=== PATIENT | female | born 1955 | race Caucasian/White ===

== ENCOUNTER → 2017-11-26 10:10 | Outpatient (CLI) | payer OTHER, SELFPAY | PROVIDERS: Family Provider Internal Medicine; PCP Internal Medicine; Visit Provider Internal Medicine | DX: M81.0 Age-related osteoporosis without current pathological fracture (principal); Z12.31 Encounter for screening mammogram for malignant neoplasm of breast | CPT/HCPCS: 77063; 77067; 77080 ==

== ENCOUNTER → 2018-01-30 12:21 | Outpatient (CLI) | payer SELFPAY ==
--- NOTE | 2018-01-30 12:28 | CT_ITS ---
STUDY: CT CHEST WITHOUT CONTRAST REASON FOR EXAM: Female, 62 years old. Elevated cholesterol. This is an over read examination for the lungs and mediastinum.. RADIATION DOSAGE (If Supplied By Facility): CTDIvol = ( 12.19 ) mGy, DLP = ( 195.04 ) mGycm TECHNIQUE: Transaxial imaging was performed without the administration of intravenous contrast material. Individualized dose optimization techniques were used for this CT. COMPARISON: None. FINDINGS: The lungs are normal. There is no demonstrated pleural abnormality. There are calcifications of the coronary arteries. There are multiple small lymph nodes within the mediastinum, which are normal in size and morphology most compatible with reactive lymph hyperplasia. Normal hilar regions. Normal unenhanced pulmonary arteries. Normal aorta arch and descending thoracic aorta. There are degenerative changes of the thoracic spine. There is no demonstrated abnormality of the visualized upper abdomen. CT/Limited Chest CT w/CCTA IMPRESSION: Coronary artery calcification. No acute abnormalities seen. Electronically Signed: Yuri Westfall MD at 8:30 EST Tel [phone], Service support ,
[2018-01-30 12:48] VITALS: BP 125/72; PULSE 57; RESP 14; TEMP 37.3; O2SAT 98; BMI 20.5
--- NOTE | 2018-01-31 08:40 | CA.SCORE ---
Calcium Scoring Date of Study:: 01/30/18 Coronary Calcium Scoring: Coronary calcium scoring. High-resolution computed tomographic images of the chest were performed on 01/30/2018 with particular attention paid to the coronary arteries. Images from the examination were analyzed for the presence and extent of coronary artery calcification using the coronary calcifications software. Patient tolerated the procedure well there were no complications. Findings, Left main coronary artery had mild calcification with a score of 20. Left anterior descending artery score of 0 Left circumflex artery score 0 Right coronary artery score of 0 Total calcium score 20. The above is suggestive of minimal atherosclerotic calcification. Conclusion: Minimal coronary artery calcification noted.
== END ==
PROVIDERS: Family Provider Internal Medicine; PCP Internal Medicine; Referring Provider Internal Medicine; Visit Provider Internal Medicine
DX: I25.10 Atherosclerotic heart disease of native coronary artery without angina pectoris (principal); E78.00 Pure hypercholesterolemia, unspecified; R79.89 Other specified abnormal findings of blood chemistry
CPT/HCPCS: 75571; 76380

== ENCOUNTER → 2018-11-27 07:37 | Outpatient (CLI) | payer OTHER, SELFPAY ==
--- NOTE | 2018-11-27 07:39 | BI_ITS ---
MAMMOGRAPHY - BILATERAL SCREENING REASON FOR EXAM: Female, 63 years old. Routine annual screening examination. PERTINENT HISTORY: Non-contributory. TECHNIQUE: Digital bilateral breast chika (3D mammographic acquisition) in the CC and MLO projections. 2-D mediolateral oblique (MLO) and craniocaudad (CC) views of both breasts were obtained. CAD: Full Field Digital Mammography with Computer Added Detection was performed. COMPARISON: Comparison is made with prior study dated November 26, 2017 and November 21, 2016. FINDINGS: Breast Composition: The breasts are heterogeneously dense, which may obscure small masses. There are no dominant masses or suspicious calcifications. No other significant abnormalities are identified. There has been no significant change since the prior study. BI/SCREEN MAMM (CAD) W/CHIKA BILAT IMPRESSION: Stable bilateral screening mammogram. Yearly follow-up mammogram recommended. (A) ASSESSMENT CATEGORY: BIRADS Category 1: Negative. A letter regarding these results will be sent to the patient by the facility within 30 days. Approximately 10% of breast cancers are not detected by mammography. A normal mammogram should not delay biopsy of a clinically suspicious abnormality. [id number] Electronically Signed: Yuri Westfall, at 8:29 EDT , Service support ,
== END ==
PROVIDERS: Family Provider Internal Medicine; PCP Internal Medicine; Referring Provider Internal Medicine; Visit Provider Internal Medicine
DX: Z12.31 Encounter for screening mammogram for malignant neoplasm of breast (principal)
CPT/HCPCS: 77063; 77067

== ENCOUNTER → 2019-08-26 09:07 | Outpatient (CLI) | payer OTHER, SELFPAY ==
[2018-01-30 12:48] VITALS: BMI 20.5
--- NOTE | 2019-08-25 | FLU_PTH ---
PATIENT: STEPHY HERNANDEZ LOC: [facility] U#:[id number] AGE/SX: 69/F ROOM: RE08/26/[address]: Dr. Bharti Lew DPM : 1955 BED: DIS: SPEC #: [id number] RECD: 08/25/19 17:26 STATUS: PELON AXEL #: [id number] ALEXIS: 08/25/19 00:[address]: Bharti Lew DEPT: CYTOLOGY RECD BY: Elier Remy ENTERED: 08/26/19 09:37 SP TYPE: Fluid OTHR DR: Dr. Viktoriya Roque MD Tissues: GANGLION CYST Procedures: Special Stain Group II Surgery Specimen Level IV Cytospin Fluid HEADER OPERATION: Ganglion aspiration PRE-OP DIAGNOSIS: Ganglion cyst TISSUE SUBMITTED: Ganglion aspirate for cytology DIAGNOSIS CYTOLOGY Fine needle aspiration, ganglion cyst (cytospin and cell block): Negative for malignant cells. AM:yelena 08/27/19 CYTOLOGY STUDY Slides are reviewed. CYTOLOGY GROSS Received is 1.5 ml of red cloudy fluid labeled with the patient's name and and designated per the requisition as ganglion. Submitted for cytology preparation including cell block. / yelena 08/26/19 TC:5 CPT: 63930, 88390
== END ==
PROVIDERS: PCP Internal Medicine; Visit Provider Podiatrist
DX: M71.379 Other bursal cyst, unspecified ankle and foot (principal)
CPT/HCPCS: 88108; 88305; 88313

== ENCOUNTER → 2019-08-31 08:29 | Outpatient (CLI) | payer OTHER, SELFPAY ==
--- NOTE | 2019-08-31 08:34 | RAD_ITS ---
STUDY: X-RAY - RIGHT ANKLE REASON FOR EXAM: Female, 64 years old. PAIN TECHNIQUE: 3 view(s) of the ankle. COMPARISON: None. FINDINGS: Normal visualized distal tibia and fibula. Normal medial and lateral malleoli. Normal tibiotalar articulation and ankle mortise. Normal visualized talus and calcaneus. The visualized subtalar, talonavicular, calcaneocuboid and tarsal articulations are normal. The soft tissue structures are unremarkable. RAD/Ankle min 3 Views IMPRESSION: Normal x-ray examination of the ankle. Electronically Signed: Yuri Westfall, at 13:43 EDT , Service support ,
== END ==
PROVIDERS: PCP Internal Medicine
DX: D49.2 Neoplasm of unspecified behavior of bone, soft tissue, and skin (principal)
CPT/HCPCS: 73610

== ENCOUNTER → 2019-09-08 06:13 | Outpatient (CLI) | payer OTHER, SELFPAY ==
--- NOTE | 2019-09-08 06:37 | MRI_ITS ---
STUDY: MRI RIGHT ANKLE WITH AND WITHOUT CONTRAST REASON FOR EXAM: Anterior lateral ankle lump. TECHNIQUE: Standarized fat and water weighted pulse sequences were obtained in all 3 orthogonal plane pre and post intravenous administration of IV 10ml Dotarem. COMPARISON: Radiographs 08/31/2019. FINDINGS: There is a cystic lesion at the lateral aspect of the talar head/neck corresponding to the skin marker (T2 axial images 16-18; inversion recovery sagittal images 6, 7) measuring 2.1 x 0.5 cm (AP x transverse). There is a mildly thickened wall of the cystic lesion with contrast enhancement (postcontrast T1 axial images 16-19). Normal posterior tibialis tendon. Normal flexor digitorum longus tendon. Normal flexor hallucis longus tendon. Normal peroneus longus and brevis tendons. Normal tibialis anterior tendon. Normal extensor hallucis longus tendon. Normal extensor digitorum longus tendons. Normal Achilles tendon and teno-osseous insertion. Normal plantar fascia. Normal plantar calcaneal tubercles. Normal intrinsic muscles of the rearfoot. Normal distal tibiofibular syndesmotic ligamentous complex. Normal lateral ligamentous complex. Normal subtalar ligaments and sinus tarsi. Normal deltoid ligamentous complexes. Normal plantar calcaneonavicular (spring) ligament. Normal tibiotalar articulation. Normal talar dome. Normal subtalar articulations. Normal talonavicular articulation. Normal calcaneocuboid articulation. Normal navicular-cuneiform articulations. MRI/Lower Ext Joint Only W/WO Cont IMPRESSION: Cystic lesion at the lateral aspect of the distal talus with mildly thickened contrast enhancing wall, a leading differential consideration is a complicated ganglion cyst. Electronically Signed: Daniel Benjamin MD at 8:35 EDT Tel , Service support ,
[2019-09-08 08:01] LABS: CREATININE FINGERSTICK 0.8 mg/dL (0.55-1.02); EGFR FINGERSTICK > 60.0000 mL/min (>60)
== END ==
PROVIDERS: PCP Internal Medicine; Referring Provider Podiatrist; Visit Provider Podiatrist
DX: D49.2 Neoplasm of unspecified behavior of bone, soft tissue, and skin (principal)
CPT/HCPCS: 73723; A9585

== ENCOUNTER 2019-12-03 05:52 | Day surgery (SDC) | payer OTHER, SELFPAY ==
[2019-12-03 06:24] VITALS: BP 168/82; PULSE 67; RESP 16; TEMP 37.3; O2SAT 67; BMI 21.6
--- NOTE | 2019-12-03 06:32 | PCM.HP.STD ---
Problem List (1) Ganglion cyst of right foot Status: Acute History of Present Illness Date of Admission: 12/03/19 Chief Complaint: Pt complains of chronic pain and sudden onset of cyst to right ankle/rearfoot The patient is a 64 year old F [] Past Medical History Allergies Penicillins Allergy (Verified 11/24/19 13:29) Rash Home Medications: Ambulatory Orders Medication Instructions Recorded Berberine 500 mg PO DAILY 11/24/19 RX: Turmeric 900 mg PO DAILY 11/24/19 Rosuvastatin Calcium [Crestor] 5 mg PO QHS 11/24/19 Smoking Status: Never smoker Tobacco Use: Non-smoker VTE Information - Inpt Only VTE Present on Admission: No Reason prophylaxis not ordered:: Treatment Not Indicated Patient Problems: Active and Suspected Problems Ganglion cyst of right foot (Acute) Subjective: Pt complains of painful large lump to right ankle. MRI confirmed complicated cyst near talar head. She wishes to have it surgically removed after it returned following aspiration. Objective: Smaller, firmer cyst to right rearfoot, lateral to talar head. Pain is present with ROM and palpation of the lesion. - Physical Exam General: Alert, Cooperative, No apparent distress Extremities: Peripheral Pulses Normal Skin: No rashes, No breakdown Musculoskeletal: - - Palpable freely movable cyst to right rearfoot, lateral to the talar head. Neurological: - - No sensory deficit to right rearfoot/ankle area. Current Medications Clindamycin Phosphate 900 mg/ (Dextrose) 106 mls @ 150 mls/hr IV PREOP ONE Stop: 12/03/19 07:42 Assessment/Plan All Active Problems Ganglion cyst of right foot (Acute) 1. Ganglion cyst right rearfoot 2. pain right foot Plan: Aspiration failed to relieve symptoms and MRI confirmed complicated ganglion. Pt wishes to proceed with surgical excision. Risks, complications, alternative treatments were reviewed in detail. No guarantees given. Consent was signed and pt to present to [facility] on 12/03/2019 for outpatient surgical intervention for excision of lesion.
[2019-12-03] MEDS: Lactated Ringers 1,000 ML 100 ML IV (06:45)
--- NOTE | 2019-12-03 07:30 | GANG_PTH ---
PATIENT: STEPHY HERNANDEZ LOC: [facility] [place] U#:[id number] AGE/SX: 64/F ROOM: RE12/03/[address]: Dr. Bharti Lew DPM : 1955 BED: DIS: 12/03/2019 SPEC #: [id number] RECD: 12/03/19 08:28 STATUS: PELON AXEL #: [id number] ALEXIS: 12/03/19 07:[address]: Bharti Lew DEPT: SURGICAL PATHOLOGY RECD BY: Fly Dempsey ENTERED: 12/03/19 12:43 SP TYPE: GANGLION OTHR DR: Dr. Viktoriya Roque MD Tissues: GANGLION CYST Procedures: Surgery Specimen Level III HEADER OPERATION: Excision ganglion cyst of right foot/ankle PRE-OP DIAGNOSIS: Ganglion cyst of right foot/ankle TISSUE SUBMITTED: Ganglion cyst of right foot/ankle MICROSCOPIC DIAGNOSIS Ganglion cyst of right foot/ankle: A piece of fibroconnective and fibroadipose tissue with reactive changes and focal suggestive of ganglion cyst.. See comment. MERCEDEZ:yelena 12/06/19 COMMENT Please make reference to previous specimen ([id number]) fine needle aspiration, ganglion cyst with diagnosis of negative for malignant cells. Case has been reviewed in consultation with Dr. Shafer who concurs with the above diagnosis. IDC:AM MICROSCOPIC DESCRIPTION Slides are reviewed. GROSS DESCRIPTION Received in fixative is one container labeled with the patient's name and designated ganglion cyst of right foot/ankle. The specimen consists of a piece of peng-pink soft tissue measuring in aggregate 1.5 x 1 x 0.3 cm. The entire specimen is submitted in one cassette. / MERCEDEZ:yelena 12/03/19 TC:5 CPT: 21865
--- NOTE | 2019-12-03 08:04 | PCM.OPRPT ---
Problem List (1) Ganglion cyst of right foot Status: Acute Report of Operation Date of Procedure: 12/03/19 Pre-Operative Diagnosis: ganglion cyst right foot/ankle Post-Operative Diagnosis: same Surgery/Procedure Performed:: excision ganglinn cyst, right foot/ankle Description of Surgical Findings:: empty ganglion cyst lateral to talus Type of Anesthesia:: MAC/Supplemental/Local - 7cc's 1\5 lidocaine with epinephrine Anesthesiologist: Eneida Specimen's removed: soft tissue Drains: none Estimated Blood Loss (mL): minimal Fluids Replaced: none Description of Procedure: Pt was brought to OR and placed on operating table in supine position. Following IV sedation, local anesthesia was obtained proximal to the lesion location utilizing a total of 7 cc's of 1% lidocaine with epi. The foot and ankle were scrubbed, prepped, and draped in the usual aseptic manner. The right foot was elevated to exsanguinate the limb and the pneumatic ankle tourniquet was inflated to 250mmHg. Attention was then directed to the anterior ankle/rearfoot, lateral to the talar head. A 5cm linear longitudinal incision was made superficial to the cyst. The incision was deepened through sharp and then blunt dissection down to the level of the lateral talar head. The deep peroneal nerve was located and retracted gently. It was directly superficial to the cyst. The empty cyst was located lateral to the talar head, dissected free from attachments, and excised. It was approximately 1.5cm. All superficial bleeding vessels were cauterized as necessary. The wound was then flushed with copious amounts of NSS. Deep tissues were reapproximated and coapted utilizing 3-0 vicryl sutures, making sure the nerve was not bound. The skin was then reapproximated and coapted utilizing 3-0 monocryl sutures. The wound was reinforced with steri strips and a sterile compressive dressing consisting of 4x4's, kerlix, and a 4 inch trent was applied. Tourniquet was removed and a prompt hyperemic response was noted to all digits of the right foot. Pt was transferred to PACU with VSS and vascular status intact to right foot. Following a period of post operative monitoring, the pt will be discharged home with written post operative instructions. She is to keep the dressing clean, dry, and intact. Rest, ice, elevate, and wear surgical shoe at all times while ambulating. WB as tolerated, using crutches prn. Take pain medication as directed. Follow in Dr. Lew's office for all post operative care and if any problems arise. Grafts/Implants Used: none - Complications none - Admit VTE Documentation VTE Present on Admission: No VTE Mechan Device Prophylaxis: None VTE Pharm Prophylaxis ordered?: No Reason prophylaxis not ordered:: Treatment Not Indicated
[2019-12-03 08:17] VITALS: BP 112/75; BP 123/84; BP 168/82; PULSE 72; PULSE 75; RESP 16; TEMP 36.6; O2SAT 98; O2SAT 99
[2019-12-03 08:24] VITALS: BP 129/73; BP 168/82; PULSE 68; RESP 18; O2SAT 100
[2019-12-03 08:30] VITALS: BP 120/77; BP 168/82; PULSE 65; RESP 16; TEMP 36.7; O2SAT 100
[2019-12-03 08:55] VITALS: BP 128/73; BP 168/82; PULSE 72; RESP 16; TEMP 36.7; O2SAT 100
== END 2019-12-03 09:22 | disposition home or self-care (01) ==
LOC: SDC 05:52 → AC 05:58
PROVIDERS: Anesthesiology; PCP Internal Medicine; Referring Provider Podiatrist; Visit Provider Podiatrist
PROC: (CPT 28090; principal; 2019-12-03 07:15)
DX: M67.471 Ganglion, right ankle and foot (principal); Z11.59 Encounter for screening for other viral diseases; E78.00 Pure hypercholesterolemia, unspecified; Z79.899 Other long term (current) drug therapy
CPT/HCPCS: 01470; 28090; 87635; 88304; C9803; J7120; J2405; U0003

== ENCOUNTER → 2020-01-13 09:04 | Outpatient (CLI) | payer OTHER, SELFPAY ==
--- NOTE | 2020-01-13 09:07 | BI_ITS ---
MAMMOGRAPHY - BILATERAL SCREENING REASON FOR EXAM: Female, 64 years old. Routine annual screening examination. PERTINENT HISTORY: Non-contributory. TECHNIQUE: Digital bilateral breast chika (3D mammographic acquisition) in the CC and MLO projections. 2-D mediolateral oblique (MLO) and craniocaudad (CC) views of both breasts were obtained. CAD: Full Field Digital Mammography with Computer Added Detection was performed. COMPARISON: Comparison is made with prior study dated 11/27/2018 and 11/26/2017. FINDINGS: Breast Composition: The breasts are heterogeneously dense, which may obscure small masses. There are no dominant masses or suspicious calcifications. No other significant abnormalities are identified. There has been no significant change since the prior study. BI/SCREEN MAMM (CAD) W/CHIKA BILAT IMPRESSION: Stable bilateral screening mammogram. Yearly follow-up mammogram recommended. (A) ASSESSMENT CATEGORY: BIRADS Category 1: Negative. A letter regarding these results will be sent to the patient by the facility within 30 days. Approximately 10% of breast cancers are not detected by mammography. A normal mammogram should not delay biopsy of a clinically suspicious abnormality. [id number] Electronically Signed: Yuri Westfall, at 10:28 EDT , Service support ,
--- NOTE | 2020-01-13 09:15 | BD_ITS ---
STUDY: DUAL ENERGY X-RAY ABSORPTIOMETRY / DXA REASON FOR EXAM: Female, 64 years old. 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 COMPARISON: Comparison is made with a prior study dated 12/21/2017. FINDINGS: Lumbar Spine (L1-L4): g/cm2 (1.006) / T-score (-1.4) / Z-score (0.1) Findings are suggestive of osteopenia with a low fracture risk. Left Femur Total: g/cm2 (0.770) / T-score (-1.9) / Z-score (-0.7) Left Femoral Neck: g/cm2 (0.757) / T-score (-2.0) / Z-score (-0.6) Right Femur Total: g/cm2 (0.757) / T-score (-2.0) / Z-score (-0.8) Right Femoral Neck: g/cm2 (0.770) / T-score (-1.9) / Z-score (-0.5) The T-Scores on the most recent prior examination were: Lumbar Spine (L1-L4): There has been improvement of bone density since the previous examination. Left Femur Total: which represents a worsening of 1.7%. Right Femur Total: which represents a worsening of 0.9%. BD/Dexa Bone Density Study IMPRESSION: The patient is considered osteopenic as outlined below according to World Tyler Organization (WHO) criteria with a moderate fracture risk. There has been worsening of bone density since the previous examination. Reference Information: The T-score is the number of standard deviations above or below the standard which is normal for young adults at their peak bone mineral density. The World Health Organization (WHO) interprets the T-scores as follows: Above -1 Normal bone density Between -1 and -2.5 Osteopenia Equal to / or below -2.5 Osteoporosis As a practical clinical guideline, osteopenia may be graded as follows: Mild -1 through -1.5 Moderate -1.6 through -2.0 Severe -2.1 through -2.4 The Z-score is the number of standard deviations above or below age-matched controls. A Z-score of less than -1.5 would be considered abnormal. References: 1. NIH Osteoporosis and Related Bone Diseases www osteo.org 2. International Society for Clinical Densitometry www iscd.org 3. National Osteoporosis Foundation www nof.org Electronically Signed: Yuri Westfall, at 12:16 EDT , Service support ,
== END ==
PROVIDERS: PCP Internal Medicine; Referring Provider Internal Medicine; Visit Provider Internal Medicine
DX: Z12.31 Encounter for screening mammogram for malignant neoplasm of breast (principal); M81.0 Age-related osteoporosis without current pathological fracture
CPT/HCPCS: 77063; 77067; 77080

== ENCOUNTER → 2021-03-13 08:25 | Outpatient (CLI) | payer MEDICARE, SELFPAY ==
--- NOTE | 2021-03-13 08:30 | BI_ITS ---
MAMMOGRAPHY - BILATERAL SCREENING REASON FOR EXAM: Female, 65 years old. Routine annual screening examination. PERTINENT HISTORY: Non-contributory. TECHNIQUE: Digital bilateral breast chika (3D mammographic acquisition) in the CC and MLO projections. 2-D mediolateral oblique (MLO) and craniocaudad (CC) views of both breasts were obtained. CAD: Full Field Digital Mammography with Computer Added Detection was performed. COMPARISON: Comparison is made with prior study dated 01/13/2020 and 11/27/2018. FINDINGS: Breast Composition: The breasts are heterogeneously dense, which may obscure small masses. There are no dominant masses or suspicious calcifications. No other significant abnormalities are identified. There has been no significant change since the prior study. BI/SCRN MAMM (CAD)W/CHIKA BILAT IMPRESSION: Stable bilateral screening mammogram. Yearly follow-up mammogram recommended. (A) ASSESSMENT CATEGORY: BIRADS Category 1: Negative. A letter regarding these results will be sent to the patient by the facility within 30 days. Approximately 10% of breast cancers are not detected by mammography. A normal mammogram should not delay biopsy of a clinically suspicious abnormality. [id number] Electronically Signed: Yuri Westfall MD at 10:54 EST , Service support ,
== END ==
PROVIDERS: PCP Internal Medicine; Referring Provider Internal Medicine; Visit Provider Internal Medicine
DX: Z12.31 Encounter for screening mammogram for malignant neoplasm of breast (principal)
CPT/HCPCS: 77063; 77067

== ENCOUNTER → 2022-03-14 | Outpatient (CLI) | payer MEDICARE, SELFPAY ==
--- NOTE | 2022-03-14 09:01 | BI_ITS ---
MAMMOGRAPHY - BILATERAL SCREENING REASON FOR EXAM: Female, 66 years old. Routine annual screening examination. PERTINENT HISTORY: Non-contributory. TECHNIQUE: Digital bilateral breast chika (3D mammographic acquisition) in the CC and MLO projections. 2-D mediolateral oblique (MLO) and craniocaudad (CC) views of both breasts were obtained. CAD: Full Field Digital Mammography with Computer Added Detection was performed. COMPARISON: Comparison is made with prior examination dated 03/13/2021 and 01/13/2020. FINDINGS: Breast Composition: The breasts are heterogeneously dense, which may obscure small masses. There are no dominant masses or suspicious calcifications. No other significant abnormalities are identified. There has been no significant change since the prior study. BI/SCRN MAMM (CAD)W/CHIKA BILAT IMPRESSION: Stable bilateral screening mammogram. Yearly follow-up mammogram recommended. (A) ASSESSMENT CATEGORY: BIRADS Category 1: Negative. A letter regarding these results will be sent to the patient by the facility within 30 days. Approximately 10% of breast cancers are not detected by mammography. A normal mammogram should not delay biopsy of a clinically suspicious abnormality. [id number] Electronically Signed: Yuri Westfall MD at 10:50 EST ,
--- NOTE | 2022-03-14 09:10 | BD_ITS ---
STUDY: DUAL ENERGY X-RAY ABSORPTIOMETRY / DXA REASON FOR EXAM: Female, 66 years old. 627.8Menopausal postmenopausalBONE DENSITY REASON FOR EXAM TECHNIQUE: Bone Mineral Density (BMD) measurements of lumbar spine and bilateral hips were obtained. COMPARISON: -0.6 is made with prior study dated 01/13/2020. FINDINGS: Lumbar Spine (L1-L4): g/cm2 (0.869) / T-score (-1.6) / Z-score (0.3) Findings are suggestive of osteopenia with a moderate fracture risk. Left Femur Total: g/cm2 (0.708) / T-score (-1.9) / Z-score (-0.6) Left Femoral Neck: g/cm2 (0.599) / T-score (-2.3) / Z-score (-0.6) Right Femur Total: g/cm2 (0.682) / T-score (-2.1) / Z-score (-0.8) Right Femoral Neck: g/cm2 (0.624) / T-score (-2.0) / Z-score (-0.4) The T-Scores on the most recent prior examination were: Lumbar Spine (L1-L4): There has been worsening of bone density since the previous examination. Left Femur Total: which represents a worsening of 0.3%. Right Femur Total: which represents a worsening of 2.2%. BD/Dexa Bone Density Study IMPRESSION: The patient is considered osteopenic as outlined below according to World Tyler Organization (WHO) criteria with a high fracture risk. There has been worsening of bone density since the previous examination. Reference Information: The T-score is the number of standard deviations above or below the standard which is normal for young adults at their peak bone mineral density. The World Health Organization (WHO) interprets the T-scores as follows: Above -1 Normal bone density Between -1 and -2.5 Osteopenia Equal to / or below -2.5 Osteoporosis As a practical clinical guideline, osteopenia may be graded as follows: Mild -1 through -1.5 Moderate -1.6 through -2.0 Severe -2.1 through -2.4 The Z-score is the number of standard deviations above or below age-matched controls. A Z-score of less than -1.5 would be considered abnormal. References: 1. NIH Osteoporosis and Related Bone Diseases www osteo.org 2. International Society for Clinical Densitometry www iscd.org 3. National Osteoporosis Foundation www nof.org Electronically Signed: Yuri Westfall MD at 9:19 EST ,
--- NOTE | 2022-03-14 09:46 | US_ITS ---
STUDY: ULTRASOUND OF THE FEMALE PELVIS - COMPLETE REASON FOR EXAM: Female, 66 years old. PMB Post-Menopausal Bleeding - Pelvic, Tvag LMP: Patient is postmenopausal. TECHNIQUE: Transabdominal and Transvaginal TECHNICAL QUALITY: Adequate. COMPARISON: None. FINDINGS: The uterus is anteverted and is in a midline position. The uterus measures 6.7 cm x 5.2 cm x 3.9 cm. Normal uterine cervix. The endometrium is thickened and measures 14 mm in thickness, and is heterogeneous (striated). There is no demonstrated endometrial mass. There is no demonstrated myometrial mass. I.U.D. - The patient does not have an I.U.D. The right ovary is non-visualized. The left ovary is visualized. The left ovary measures 1.3 cm x 1.6 cm x 0.6 cm. There is no left ovarian cyst or ovarian mass. There is no visualized left adnexal mass or complex lesion. There is normal arterial and normal venous vascularity. There is no fluid in the cul-de-sac. The pre void volume of the bladder was 82 ml. US/Pelvic (Non ) IMPRESSION: Thickening of the endometrium measuring 14 mm. Electronically Signed: Yuri Westfall MD at 14:24 EST ,
== END | disposition home or self-care (01) ==
PROVIDERS: PCP Internal Medicine; Referring Provider Internal Medicine; Visit Provider Internal Medicine
DX: Z78.0 Asymptomatic menopausal state (principal); Z12.31 Encounter for screening mammogram for malignant neoplasm of breast; N95.0 Postmenopausal bleeding
CPT/HCPCS: 76830; 76856; 77063; 77067; 77080

== ENCOUNTER → 2025-03-09 | Outpatient (CLI) | payer MEDICARE, SELFPAY ==
--- NOTE | 2025-03-09 13:43 | NEURO ---
NCS and/or EMG Patient Report Ordering Doctor: Bharti Lew DATE OF SERVICE: 03/09/25 No presents with complaints of numbness in both feet. Electrodiagnostic findings: Left peroneal motor nerve demonstrates normal distal latency, amplitude and conduction velocity. Right peroneal motor nerve demonstrates normal distal latency and amplitude with a drop in conduction velocity of greater than 10 ms. Tibial motor response within normal limits bilaterally. Sensory responses are normal. Normal tibial and peroneal F?waves. Normal H?reflux bilaterally. Needle EMG testing was performed in the lower limbs. All muscles tested showed no evidence of denervation with normal motor unit action potentials. Electrodiagnostic impression: This is an abnormal study. 1. 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 There is no evidence of axonal loss. Is unclear whether this is attributing to the patient's symptoms. 2. No electrodiagnostic evidence is noted for peripheral polyneuropathy. 3. No electrodiagnostic evidence is noted for lumbosacral radiculopathy Multi Select Codes Neurology Neurology Interp Codes: 69546-46 Musc test done w/n test comp (interp) (2) and 81395-02 Nrv cndj test 11-12 studies (interp)
== END | disposition home or self-care (01) ==
PROVIDERS: PCP Internal Medicine; Referring Provider Podiatrist; Visit Provider Podiatrist
DX: G62.9 Polyneuropathy, unspecified (principal); G90.09 Other idiopathic peripheral autonomic neuropathy
CPT/HCPCS: 95886; 95912

== ENCOUNTER → 2025-03-10 | Outpatient (CLI) | payer MEDICARE, SELFPAY ==
[2025-03-10 10:44] LABS: Hematocrit 39.3 % (37-47); Hemoglobin 12.8 g/dL (12.0-15.0); Immature Granulocytes Count 0.020 X10^3/uL (0.0-0.0); Mean Corp Hgb Conc 32.6 g/dL (32-36); Mean Corpuscular Volume 96.8 fL (81-99); Mean Platelet Vol. 10.0 fl (6.2-12.0); NRBC Flagged by Analyzer 0 % (0-5); Platelet Count 382 K/mm3 (150-450); RBC Distribution Width CV 13.1 % (11.6-14.6); RBC Distribution Width SD 46.7 fl (35.1-43.9); Red Blood Count 4.06 M/mm3 (4.2-5.4); White Blood Count 5.5 K/mm3 (4.4-11.0)
[2025-03-10 11:16] LABS: Creatinine, Urine (random) 227.00 mg/dL (28.00-217.00); Microalbumin,Random Urine 15.5 mg/L (<20 mg/L)
[2025-03-10 11:26] LABS: Follicle Stimulating Hormone 49.7 mIU/mL
[2025-03-10 11:35] LABS: AST(SGOT) 36 U/L (<=31); Alanine Aminotransfer ALT/SGPT 40 U/L (<=34); Albumin, Serum 4.4 g/dL (3.4-4.8); Alkaline Phosphatase 82 U/L (35-104); Anion Gap 12 (5-15); BUN 17 mg/dL (4-19); BUN/Creat Ratio 17.5 RATIO (10-20); Calcium,Total 9.4 mg/dL (7.6-11.0); Carbon Dioxide 23.4 mmol/L (21.0-32.0); Chloride 108 mmol/L (98-108); Cholesterol 177 mg/dL (<=200); Ferritin 38 ng/mL (22-378); Globulin 2.5 g/dL (2.2-4.2); Glucose 106 mg/dL (70-99); Low Density Lipoprotein Calc. 73 mg/dL; Potassium 4.0 mmol/L (3.3-5.1); Triglycerides 77 mg/dL; Very Low Density Lipoprotein 15 mg/dL (5-40); Vitamin D,25 Hydroxy 51.6 ng/mL (30-100); cholesterol:hdl ratio screen 1.98
[2025-03-15 12:08] LABS: Testosterone, % Free 1.23 % (0.50-2.80); Testosterone, Free <.04 ng/dL (0.10-0.85)
== END | disposition home or self-care (01) ==
PROVIDERS: PCP Internal Medicine; Visit Provider Internal Medicine
DX: I10 Essential (primary) hypertension (principal); E55.9 Vitamin D deficiency, unspecified; R79.0 Abnormal level of blood mineral; N95.1 Menopausal and female climacteric states
CPT/HCPCS: 36415; 80053; 80061; 82043; 82306; 82570; 82670; 82728; 83001; 83036; 84270; 84402; 84403; 85025